=== PATIENT | female | born 1955 | race Caucasian/White ===

== ENCOUNTER 2017-07-08 01:20 | Emergency (ER) | payer OTHER ==
[2017-07-08] MEDS ORDERED: Sodium Chloride 0.9% 10 ML Syringe FLUSH PRN (01:23)
[2017-07-08] MEDS ORDERED: Nitroglycerin 0.4 MG Tab.SL SL PRN (01:59)
[2017-07-08] MEDS ORDERED: Clopidogrel 75 MG Tab PO ONE (02:32)
[2017-07-08] MEDS ORDERED: Heparin Sodium 5,000 Units/ML Vial IVPUSH ONE (02:40)
[2017-07-08] MEDS ORDERED: Heparin Sodium/D5W 25,000 UNITS/500 ML BAG IV ONE (02:45)
[2017-07-08 02:55] VITALS: BP 149/97
--- NOTE | 2017-07-08 02:59 | EDM.PDOC ---
ED HPI GENERAL MEDICAL PROBLEM - General Chief Complaint: Chest Pain Stated Complaint: [facility] Time Seen by Provider: 07/08/17 01:23 Source of Information: Reports: Patient History Limitations: Reports: No Limitations - History of Present Illness INITIAL COMMENTS - FREE TEXT/NARRATIVE: This lady comes in with a complaint of chest pain. She had an episode yesterday morning after eating some greasy food and drinking a soda but that went away by itself. Tonight at about 1 AM she was awakened by substernal chest pain that radiated to her left arm. At worst it was about a 9 out of 10. EMS arrived and they gave her 2 nitroglycerin sprays but that didn't seem to help. Presently she describes the pain as 5 out of 10. Patient took 4 baby aspirin at home before EMS arrival. She denies any history of coronary artery disease. She does have a history of atrial fibrillation. She takes aspirin daily but no anticoagulants. She denies any shortness of breath she denies nausea or sweating. Chest Pain Score (Numeric/FACES): 5 - Related Data Allergies Allergy/AdvReac Type Severity Reaction Status Date / Time amoxicillin Allergy Cannot Verified 07/08/17 01:39 Remember Home Meds: Home Meds Aspirin 1 tab PO BEDTIME 07/08/17 [History] Lisinopril 1 tab PO BEDTIME 07/08/17 [History] Omeprazole 1 tab PO DAILY 07/08/17 [History] Vit A/Vit C/Vit E/Zinc/Copper [Preservision] 1 tab PO BID 07/08/17 [History] Past Medical History Cardiovascular History: Reports: Afib, Hypertension Gastrointestinal History: Reports: GERD Social & Family History - Tobacco Use Smoking Status *Q: Never Smoker - Alcohol Use Days Per Week of Alcohol Use: 4 Number of Drinks Per Day: 4 Total Drinks Per Week: 16 - Recreational Drug Use Recreational Drug Use: No ED ROS GENERAL - Review of Systems Review Of Systems: See Below Constitutional: Reports: No Symptoms HEENT: Reports: No Symptoms Respiratory: Reports: No Symptoms Cardiovascular: Reports: Chest Pain Endocrine: Reports: No Symptoms GI/Abdominal: Reports: No Symptoms : Reports: No Symptoms ED EXAM, GENERAL - Physical Exam Exam: See Below Exam Limited By: No Limitations General Appearance: Alert, WD/WN, No Apparent Distress Eye Exam: Bilateral Eye: Normal Inspection Nose: Normal Inspection Throat/Mouth: Normal Oropharynx Head: Atraumatic Neck: Normal Inspection Respiratory/Chest: Lungs Clear Cardiovascular: Regular Rate, Rhythm, Other (Had some supraventricular bigeminy on EKG) Peripheral Pulses: 2+: Radial (L), Radial (R), Posterior Tibial (L), Posterior Tibial (R) GI/Abdominal: Soft, Non-Tender Extremities: Normal Inspection Neurological: Alert, Oriented, CN II-XII Intact, Normal Cognition, No Motor/ Sensory Deficits Psychiatric: Normal Affect (Almost) Skin Exam: Warm, Dry Course - Vital Signs Last Recorded V/S: Last Vital Signs Temp 37.1 C 07/08/17 01:25 Pulse 78 07/08/17 02:28 Resp 18 07/08/17 02:28 BP 148/97 H 07/08/17 02:28 Pulse Ox 92 L 07/08/17 02:28 - Orders/Labs/Meds Orders: Active Orders 24 hr Category Date Time Status EKG Documentation Completion [RC] ASDIRECTED Care 07/08/17 01:24 Active Chest 1V Frontal [CR] Urgent Exams 07/08/17 01:23 Taken Heparin Sodium/D5W [Heparin 25,000 Units in D5W 500 ML] Med 07/08/17 02:45 Ordered 25,000 units in 500 ml IV ONETIME Sodium Chloride 0.9% [Saline Flush] Med 07/08/17 01:23 Active 10 ml FLUSH ASDIRECTED PRN Saline Lock Insert [OM.PC] Urgent Oth 07/08/17 01:23 Ordered EKG 12 Lead [EK] Urgent Ther 07/08/17 01:23 Ordered Medication Orders Heparin Sodium/Dextrose (Heparin 25,000 Units In D5w 500 Ml) 25,000 units in 500 mls @ 14.696 mls/hr IV ONETIME ONE; 12 UNITS/KG/HR PRN Reason: Protocol Stop: 07/09/17 12:46 Sodium Chloride (Saline Flush) 10 ml FLUSH ASDIRECTED PRN PRN Reason: Keep Vein Open Last Admin: 07/08/17 01:47 Dose: 10 ml Labs: Laboratory Tests 07/08/17 07/08/17 07/08/17 Range/Units 01:40 01:40 01:40 WBC 11.5 H (4.5-11.0) K/uL RBC 3.87 (3.30-5.50) M/uL Hgb 12.6 (12.0-15.0) g/dL Hct 36.4 (36.0-48.0) % MCV 94 (80-98) fL MCH 33 H (27-31) pg MCHC 35 (32-36) % Plt Count 271 (150-400) K/uL Neut % (Auto) 61 (36-66) % Lymph % (Auto) 24 (24-44) % Ballard % (Auto) 12 H (2-6) % Eos % (Auto) 2 (2-4) % Baso % (Auto) 1 (0-1) % Sodium 138 L (140-148) mmol/L Potassium 3.6 (3.6-5.2) mmol/L Chloride 104 (100-108) mmol/L Carbon Dioxide 26 (21-32) mmol/L Anion Gap 11.6 (5.0-14.0) mmol/L BUN 23 H (7-18) mg/dL Creatinine 1.1 H (0.6-1.0) mg/dL Est Cr Clr Drug Dosing 38.09 mL/min Estimated GFR (MDRD) 50 L (>60) Glucose 128 H (74-106) mg/dL Calcium 8.6 (8.5-10.1) mg/dL Total Bilirubin 0.2 (0.2-1.0) mg/dL AST 24 (15-37) U/L ALT 26 (12-78) U/L Alkaline Phosphatase 64 (46-116) U/L Troponin I 1.340 H* (0.000-0.056) ng/mL Total Protein 7.9 (6.4-8.2) g/dL Albumin 3.5 (3.4-5.0) g/dL Globulin 4.4 H (2.3-3.5) g/dL Albumin/Globulin Ratio 0.8 L (1.2-2.2) Meds: Medications Generic Name Dose Route Start Last Admin Trade Name Freq PRN Reason Stop Dose Admin Heparin Sodium/Dextrose 25,000 units in 500 mls @ 14.696 mls/hr 07/08/17 02: 45 Heparin 25,000 Units In D5w 500 Ml IV 07/09/17 12:46 ONETIME ONE Protocol 12 UNITS/KG/HR Sodium Chloride 10 ml 07/08/17 01:23 07/08/17 01:47 Saline Flush FLUSH 10 ml ASDIRECTED PRN Administration Keep Vein Open Discontinued Medications Generic Name Dose Route Start Last Admin Trade Name Armando PRN Reason Stop Dose Admin Clopidogrel Bisulfate 600 mg 07/08/17 02:32 07/08/17 02:48 Plavix PO 07/08/17 02:33 600 mg ONETIME ONE Administration Heparin Sodium (Porcine) 4,000 units 07/08/17 02:40 Heparin Sodium IVPUSH 07/08/17 02:41 .BOLUS ONE Nitroglycerin 0.4 mg 07/08/17 01:59 07/08/17 02:06 Nitrostat SL 07/08/17 02:10 0.4 mg Q5M PRN Administration Chest Pain - Radiology Interpretation Free Text/Narrative:: Chest x-ray shows slightly enlarged heart lung robles clear - Re-Assessments/Exams Free Text/Narrative Re-Assessment/Exam: 07/08/17 02:54 EKG shows sinus rhythm at 70 bpm, supraventricular bigeminy, no ST or T changes. The patient received 1 sublingual nitroglycerin tablet which completely relieved her pain. Pain at that time was about 5 out of 10 prior to the nitroglycerin she remains pain-free. Troponin was returned at 1.34 which was confirmed on repeat. Patient received Plavix 600 mg in addition to the previous self-administered dose of 324 mg of aspirin. She also received a heparin bolus of 4000 units and a drip of 12 units per kilo per hour. I spoke with Dr. winkler at the [facility] and he has accepted the patient. He recommended that we give her a IV metoprolol but with her low normal pulse rate I felt it would be better not to give this medication.. She remains pain-free and hemodynamically stable Departure - Departure Time of Disposition: 03:00 Disposition: DC/Tfer to Acute Hospital 02 Reason for Transfer *Q: Primary PCI Indicated Condition: Serious Clinical Impression: Non-STEMI (non-ST elevated myocardial infarction) Forms: ED Department Discharge - My Orders Last 24 Hours: My Active Orders 07/08/17 01:23 Chest 1V Frontal [CR] Urgent Sodium Chloride 0.9% [Saline Flush] 10 ml FLUSH ASDIRECTED PRN Saline Lock Insert [OM.PC] Urgent EKG 12 Lead [EK] Urgent 07/08/17 01:24 EKG Documentation Completion [RC] ASDIRECTED 07/08/17 02:45 Heparin Sodium/D5W [Heparin 25,000 Units in D5W 500 ML] 25,000 units in 500 ml IV ONETIME - Assessment/Plan Last 24 Hours: My Active Orders 07/08/17 01:23 Chest 1V Frontal [CR] Urgent Sodium Chloride 0.9% [Saline Flush] 10 ml FLUSH ASDIRECTED PRN Saline Lock Insert [OM.PC] Urgent EKG 12 Lead [EK] Urgent 07/08/17 01:24 EKG Documentation Completion [RC] ASDIRECTED 07/08/17 02:45 Heparin Sodium/D5W [Heparin 25,000 Units in D5W 500 ML] 25,000 units in 500 ml IV ONETIME
--- NOTE | 2017-07-08 09:49 | CR ---
Chest 1V Frontal INDICATION: pain FINDINGS: Mild cardiac enlargement with pulmonary venous hypertension and prominence of the intersti tium, likely due to edema. Findings suggest CHF, however, a dedicated PA and lateral chest x-ray may be helpful when clinically feasible.
== END 2017-07-08 03:29 ==
LOC: JP.ED 01:20
DX: I21.4 Non-ST elevation (NSTEMI) myocardial infarction (principal); I48.91 Unspecified atrial fibrillation; I10 Essential (primary) hypertension; K21.9 Gastro-esophageal reflux disease without esophagitis; Z79.899 Other long term (current) drug therapy; Z79.82 Long term (current) use of aspirin; Z88.1 Allergy status to other antibiotic agents
CPT/HCPCS: 36415; 71010; 80053; 84484; 85025; 93005; 96374; 99285; A9270; J1644; J7050